=== PATIENT | female | born 1945 | race Caucasian/White ===

== ENCOUNTER → 2016-12-24 | Outpatient (CLI) | payer OTHER ==
[~2016-12-24] MED LIST: ACARBOSE25 MG PO; AMITRIPTYLINE H25 M2 PO; ASA81BEC PO; ASPIRIN81 M2 PO; BENICAR20 MG PO; CLOBETASOL EMOL15 GM TOP; COLACE100 MG PO; FEOSOL325 M1 PO; HYDROXYZINE HCL10 M2 PO; INVANZ 1GM/NS 101 GM IV; LANTUS SOL100 UNIT/1 SUBQ; LANTUS100 UNIT/M SUBQ; LEVOTHYROXIN0.075 MG PO; METFORMIN HCL1000 MG PO; MINOCIN100 MG PO; MYRBETRIQ25 MG PO; NORCO 5-325 TA1 EACH PO; OXYCODONE HCL 55 MG PO; TRAMADOL 50 MG50 MG PO; TRICOR145 MG PO; TYLENOL325 MG PO; VANCOMYCIN HCL1 GM IV; VANCOMYCIN1.25 GM/21 IV; VITAMIN B-1100 M1 PO; XARELTO15 MG PO; XARELTO20 MG PO; ZANTAC 150MG T150 MG PO; ZOCOR20 MG PO
== END ==
LOC: HYPER 08:11
DX: S81.801A Unspecified open wound, right lower leg, initial encounter (principal); I10 Essential (primary) hypertension; E78.00 Pure hypercholesterolemia, unspecified; E11.36 Type 2 diabetes mellitus with diabetic cataract; M19.90 Unspecified osteoarthritis, unspecified site; E11.69 Type 2 diabetes mellitus with other specified complication; M86.8X8 Other osteomyelitis, other site; Z96.651 Presence of right artificial knee joint; X58.XXXA Exposure to other specified factors, initial encounter; Y93.89 Activity, other specified; Y92.89 Other specified places as the place of occurrence of the external cause; Y99.8 Other external cause status

== ENCOUNTER → 2017-01-07 | Outpatient (CLI) | payer OTHER | LOC: HYPER 06:41 | DX: L02.415 Cutaneous abscess of right lower limb (principal); I10 Essential (primary) hypertension; E78.00 Pure hypercholesterolemia, unspecified; E11.36 Type 2 diabetes mellitus with diabetic cataract; J45.909 Unspecified asthma, uncomplicated; M19.90 Unspecified osteoarthritis, unspecified site; E11.69 Type 2 diabetes mellitus with other specified complication; M86.9 Osteomyelitis, unspecified; Z96.651 Presence of right artificial knee joint; Z79.4 Long term (current) use of insulin; Z79.82 Long term (current) use of aspirin; Z85.831 Personal history of malignant neoplasm of soft tissue ==

== ENCOUNTER → 2017-02-04 | Outpatient (CLI) | payer OTHER | LOC: HYPER 06:50 | DX: S81.801D Unspecified open wound, right lower leg, subsequent encounter (principal); L02.415 Cutaneous abscess of right lower limb; I10 Essential (primary) hypertension; E78.00 Pure hypercholesterolemia, unspecified; E78.5 Hyperlipidemia, unspecified; E11.36 Type 2 diabetes mellitus with diabetic cataract; J45.909 Unspecified asthma, uncomplicated; M19.90 Unspecified osteoarthritis, unspecified site; E11.69 Type 2 diabetes mellitus with other specified complication; M86.68 Other chronic osteomyelitis, other site; Z96.651 Presence of right artificial knee joint; X58.XXXD Exposure to other specified factors, subsequent encounter ==

== ENCOUNTER → 2017-02-25 | Outpatient (CLI) | payer OTHER | LOC: HYPER 06:34 | DX: L02.415 Cutaneous abscess of right lower limb (principal); E11.36 Type 2 diabetes mellitus with diabetic cataract; I10 Essential (primary) hypertension; E78.00 Pure hypercholesterolemia, unspecified; J45.909 Unspecified asthma, uncomplicated; M19.90 Unspecified osteoarthritis, unspecified site; M86.8X8 Other osteomyelitis, other site; Z96.651 Presence of right artificial knee joint ==

== ENCOUNTER → 2017-11-01 | Outpatient (CLI) | payer OTHER | LOC: HYPER 07:14 | DX: T81.31XD Disruption of external operation (surgical) wound, not elsewhere classified, subsequent encounter (principal); E11.622 Type 2 diabetes mellitus with other skin ulcer; L97.811 Non-pressure chronic ulcer of other part of right lower leg limited to breakdown of skin; E11.36 Type 2 diabetes mellitus with diabetic cataract; E11.69 Type 2 diabetes mellitus with other specified complication; M86.8X8 Other osteomyelitis, other site; I10 Essential (primary) hypertension; E78.5 Hyperlipidemia, unspecified; E78.00 Pure hypercholesterolemia, unspecified; M19.90 Unspecified osteoarthritis, unspecified site; J45.909 Unspecified asthma, uncomplicated; Y83.8 Other surgical procedures as the cause of abnormal reaction of the patient, or of later complication, without mention of misadventure at the time of the procedure ==

== ENCOUNTER → 2017-11-24 | Outpatient (CLI) | payer OTHER | LOC: HYPER 06:59 | DX: T81.31XA Disruption of external operation (surgical) wound, not elsewhere classified, initial encounter (principal); E11.622 Type 2 diabetes mellitus with other skin ulcer; L97.811 Non-pressure chronic ulcer of other part of right lower leg limited to breakdown of skin; E11.69 Type 2 diabetes mellitus with other specified complication; M86.8X8 Other osteomyelitis, other site; E11.36 Type 2 diabetes mellitus with diabetic cataract; E78.00 Pure hypercholesterolemia, unspecified; E78.5 Hyperlipidemia, unspecified; E07.89 Other specified disorders of thyroid; I10 Essential (primary) hypertension; J45.909 Unspecified asthma, uncomplicated; M19.90 Unspecified osteoarthritis, unspecified site; Y92.89 Other specified places as the place of occurrence of the external cause; Y83.8 Other surgical procedures as the cause of abnormal reaction of the patient, or of later complication, without mention of misadventure at the time of the procedure ==

== ENCOUNTER 2018-09-20 16:22 | Emergency (ER) | payer OTHER ==
[~2018-09-20] VITALS: Ht 160 cm; Wt 86.2 kg
--- NOTE | ~2018-09-20 | EMS ---
[address] [address] EMS Patient Care Report Name: KATY KEANE [facility] #: [facility] [id number] Admission: 09/20/18 Attend Phys: Discharge: Date of : 41 Report #: [id number] THIS REPORT FOR: //name// Report Transmitted: 09/20/2018 16:25 EMS Care Summary [place], [place]/[facility] Incident [id number] @ 09/20/2018 15:45 Incident Location [address] [address] Patient KATY KEANE Female, 73 Years 1945 Patient Address Patient History Diabetes, Patient Allergies Codeine,Penicillin allergy,Morphine,Keflex, Patient Medications Insulin, Chief Complaint DROWSY Disposition Transported No Lights/[place] Dispatch Reason Diabetic Problem Transported To [facility] Narrative RESPONDED TO DIABETIC AT HOME. UPON ARRIVAL PT FOUND SITTING IN WHEELCHAIR ASLEEP. WHEN TALKED TO PT OPENS EYES AND ANSWERS QUESTIONS BUT FALLS BACK TO SLEEP IMMEDIATELY. PT ON SCENE REPORT PT HAS DECREASED LOC OVER THE PAST 4 HOURS AND WANTS PT TO BE TRANSPORTED. PT HAD NO COMPLAINTS BESIDES BEING DROWSY. PT CARRIED TO STAIRCHAIR AND COT. VITALS, 3 LEAD AND IV OBTAINED. PT TRANSPORTED NONEMERGENCY TO [facility]. PT TEAM LIFTED TO BED AND HANDRAILS UP. [address] [address] EMS Patient Care Report Name: KATY KEANE Room #: REG [facility]#: [id number] Admission: 09/20/18 Attend Phys: Discharge: Date of : 41 Report #: [id number] REPORT GIVEN TO NURSE. Initial Vitals @16:08P: 83, @16:11P: 85,R: 14,BP: 149/91,Pain: 0/10,CO: 2,SpO2: 95, @16:04P: 87,R: 14,BP: 138/73,GCS: 14,Glucose: 119,CO: 2,SpO2: 93,Revised Trauma: 12, Assessments @15:55MENTAL:Person Oriented,Time Oriented,Place Oriented,Event Oriented,SKIN:HEENT:Head/Face: No Abnormalities,Neck/Airway: No Abnormalities,LUNG SOUNDS:General: No Abnormalities,ABDOMEN:General: No Abnormalities,PELVIS//GI:No Abnormalities,EXTREMITIES:Left Arm: No Abnormalities,Right Arm: No Abnormalities,Left Leg: No Abnormalities,Right Leg: No Abnormalities,PULSE:NEURO:@16:02MENTAL:Event Oriented,Place Oriented,Person Oriented,Time Oriented,SKIN:HEENT:Head/Face: No Abnormalities,Neck/Airway: No Abnormalities,LUNG SOUNDS:General: No Abnormalities,ABDOMEN:General: No Abnormalities,PELVIS//GI:No Abnormalities,EXTREMITIES:Left Arm: No Abnormalities,Right Arm: No Abnormalities,Left Leg: No Abnormalities,Right Leg: No Abnormalities,PULSE:NEURO:No Abnormalities, Impression Altered Mental Status Procedures @15:55ALS AssessmentSucceeded@16:08Saline Lock 3cc (20 ga) Site: Forearm-RightResponse: UnchangedSucceeded@16:023-Lead ECGResponse: UnchangedSucceeded Timeline 15:43,Call Received 15:43,Dispatch Notified 15:45,Dispatched 15:46,En Route 15:53,On Scene 15:55,At Patient 15:55,ALS Assessment,Succeeded, 16:02,3-Lead ECG,Response: UnchangedSucceeded, 16:04,BP: 138/73 M,PULSE: 87,RR: 14 R,SPO2: 93 Ox,ETCO2: ,B,PAIN: ,GCS: 14, 16:08,BP: / M,PULSE: 83,RR: R,SPO2: Ox,ETCO2: ,BG: ,PAIN: ,GCS: , 16:08,Saline Lock 3cc 20 ga Site: Forearm-Right,Response: UnchangedSucceeded, 16:10,Depart Scene 16:11,BP: 149/91 M,PULSE: 85,RR: 14 R,SPO2: 95 Ox,ETCO2: ,BG: ,PAIN: 0,GCS: , 16:19,At Destination 16:31,Call Closed [facility] [address] [place] [address] EMS Patient Care Report Name: KATY KEANE Room #: REG DISHA Farris#: [id number] Admission: 09/20/18 Attend Phys: Discharge: Date of : 41 Report #: [id number] Disclaimer v1.1 Copyright 2019 [employer] This EMS Care Summary contains data elements from the applicable legal record (which may be displayed differently). It is designed to provide pertinent information for the following purposes: continuity of care, clinical quality, and state data reporting. The complete legal record is available to ED staff and administrators of the receiving hospital in [employer]'s Patient Tracker. All data is provided "as is."
[2018-09-20 16:50] LABS: ABSOLUTE NEUTROPHILS 4.5 thou/uL (1.4-8.2); BASOPHILS 0.3 % (0.0-2.0); EOSINOPHILS 4.4 % (0.0-3.0); HEMATOCRIT 35.7 % (37.0-47.0); HEMOGLOBIN 11.8 gm/dL (12.0-15.0); LYMPHOCYTES 30.9 % (24.0-44.0); MCH 26.9 pg (26.0-34.0); MCHC 33.2 g/dL (28.0-37.0); MONOCYTES 7.9 % (1.0-8.0); PLATELET COUNT 232 thou/uL (150-400); POLYS 56.5 % (36.0-66.0); RBC 4.41 mil/uL (4.20-5.00); RDW 18.8 % (10.5-14.5); WBC 7.9 thou/uL (4.0-11.0)
[2018-09-20 16:51] LABS: ANION GAP 10 mmol/L (7-16); BUN 27 mg/dL (7-18); CALCIUM 9.3 mg/dL (8.5-10.1); CHLORIDE 103 mmol/L (98-107); CO2 25 mmol/L (21-32); GLUCOSE 43 mg/dL (74-106); POTASSIUM 3.9 mmol/L (3.5-5.1); SODIUM 138 mmol/L (136-145)
[2018-09-20 17:01] LABS: ALBUMIN 3.6 g/dL (3.4-5.0); SGOT 28 U/L (15-37); SGPT 21 U/L (30-65); TOTAL BILIRUBIN 0.3 mg/dL (<0.1-1.0); TOTAL PROTEIN 7.6 g/dL (6.4-8.2); TROPONIN-I <0.06 ng/mL (<0.06)
--- NOTE | 2018-09-20 17:26 | EKG ---
[place] [address] [facility] [place] [address] ELECTROCARDIOGRAM REPORT Name: KATY KEANE [facility] [id number] Admission: 09/20/18 Attend Phys: Discharge: Date of : 41 Report #: [id number] THIS REPORT FOR: //name// [facility] ED Test Date: 2018-09-20 Test Time: 16:47:40 Pat Name: KATY KEANE Department: Room: Gender: F Nurse Aide Evaluator: MACIEL : 1945 Requested By: Donna Devi Order Number: [id number] MD: Chalo Ryan Measurements Intervals [place] Rate: 74 P: 43 KS: 185 QRS: -10 QRSD: 103 T: 31 QT: 409 QTc: 454 Interpretive Statements Sinus rhythm Normal tracing No previous ECG available for comparison Electronically Signed On 09-20-2018 17:26:39 CDT by Chalo Ryan [email or web address] <ELECTRONICALLY SIGNED> By: Chalo Ryan MD, [facility] 09/20/18 1726 1647 1647 Chalo Ryan MD, FACC /EPI
[2018-09-20 17:32] LABS: URINE BILIRUBIN NEGATIVE (Negative); URINE BLOOD NEGATIVE (Negative); URINE CLARITY CLEAR; URINE COLOR YELLOW; URINE GLUCOSE-RANDOM* NEGATIVE (Negative); URINE KETONES NEGATIVE (Negative); URINE LEUKOCYTES-REFLEX NEGATIVE (Negative); URINE NITRITE-REFLEX NEGATIVE (Negative); URINE PROTEIN (DIPSTICK) NEGATIVE (Negative); URINE UROBILINOGEN 0.2 E.U./dl (0.2-1.0)
[2018-09-20 18:35] VITALS: BP 128/69
== END 2018-09-20 18:35 | disposition home or self-care (01) ==
LOC: ER 16:22
PROVIDERS: Physician Assistant
DX: R53.83 Other fatigue (principal); E11.9 Type 2 diabetes mellitus without complications; I10 Essential (primary) hypertension; E03.9 Hypothyroidism, unspecified; M19.90 Unspecified osteoarthritis, unspecified site; E78.00 Pure hypercholesterolemia, unspecified; K21.9 Gastro-esophageal reflux disease without esophagitis; Z96.653 Presence of artificial knee joint, bilateral; Z98.51 Tubal ligation status; Z90.49 Acquired absence of other specified parts of digestive tract; Z88.9 Allergy status to unspecified drugs, medicaments and biological substances; Z88.8 Allergy status to other drugs, medicaments and biological substances; Z88.1 Allergy status to other antibiotic agents; Z88.6 Allergy status to analgesic agent; Z88.0 Allergy status to penicillin; Z91.048 Other nonmedicinal substance allergy status

== ENCOUNTER → 2019-03-27 | Outpatient (CLI) | payer OTHER | LOC: SJCVC 11:01 | DX: R94.31 Abnormal electrocardiogram [ECG] [EKG] (principal); I10 Essential (primary) hypertension; E78.00 Pure hypercholesterolemia, unspecified; E11.9 Type 2 diabetes mellitus without complications; Z79.4 Long term (current) use of insulin; Z90.49 Acquired absence of other specified parts of digestive tract; Z79.82 Long term (current) use of aspirin ==

== ENCOUNTER → 2019-03-27 | Outpatient (CLI) | payer OTHER | LOC: SJCVC 10:34 | DX: R94.31 Abnormal electrocardiogram [ECG] [EKG] (principal); I10 Essential (primary) hypertension; E78.00 Pure hypercholesterolemia, unspecified; E11.9 Type 2 diabetes mellitus without complications; Z79.4 Long term (current) use of insulin; Z90.49 Acquired absence of other specified parts of digestive tract; Z79.82 Long term (current) use of aspirin ==

== ENCOUNTER → 2019-12-26 | Outpatient (CLI) | payer OTHER | LOC: SJCVC 09:45 → SJCVCIMAG 09:45 | PROVIDERS: ATTEND Internal Medicine Cardiovascular Disease | DX: I35.8 Other nonrheumatic aortic valve disorders (principal); R94.31 Abnormal electrocardiogram [ECG] [EKG]; E11.9 Type 2 diabetes mellitus without complications; I10 Essential (primary) hypertension; E78.00 Pure hypercholesterolemia, unspecified; R00.2 Palpitations; Z79.4 Long term (current) use of insulin; Z79.899 Other long term (current) drug therapy ==

== ENCOUNTER → 2020-01-16 | Outpatient (CLI) | payer OTHER ==
[~2020-01-16] MED LIST changes: +HUMALOG100 UNIT/1 SUBQ; +HYDROCHLOROTHIA25 M2 PO; +INSULIN LI100 UNIT/3 SQ; -LEVOTHYROXIN0.075 MG PO; +NAPROXEN SODIU220 M2 PO; +PAMELOR25 MG PO; +SIMVASTATIN80 MG PO; +SYNTHROID88 MC1 PO; +TRULANCE3 MG PO
== END ==
LOC: SJCVCIMAG 07:46
PROVIDERS: ATTEND Internal Medicine Cardiovascular Disease
DX: R00.2 Palpitations (principal); E11.9 Type 2 diabetes mellitus without complications; I10 Essential (primary) hypertension; E78.5 Hyperlipidemia, unspecified; Z79.82 Long term (current) use of aspirin; Z79.899 Other long term (current) drug therapy; Z79.4 Long term (current) use of insulin

== ENCOUNTER → 2020-01-25 | Outpatient (CLI) | payer OTHER ==
[~2020-01-25] VITALS: Ht 160 cm; Wt 90.7 kg
[2020-01-25 07:38] VITALS: BP 153/62
[2020-01-25 07:43] LABS: HEMATOCRIT 34.8 % (37.0-47.0); HEMOGLOBIN 11.1 gm/dL (12.0-15.0); MCH 26.4 pg (26.0-34.0); MCV 82.7 fL (80.0-100.0); RBC 4.21 mil/uL (4.20-5.00); RDW 13.8 % (10.5-14.5); WBC 5.8 thou/uL (4.0-11.0)
--- NOTE | 2020-01-25 07:49 | EKG ---
[place] [address] [facility] [place] [address] ELECTROCARDIOGRAM REPORT Name: KATY KEANE [facility] #: [facility] [id number] Admission: 01/25/20 Attend Phys: Heber Banuelos MD, Discharge: Date of : 41 Report #: [id number] [facility] Test Date: 2020-01-25 Test Time: 07:38:37 Pat Name: KATY KEANE Department: Room: Gender: F Sole Leveler: SBULOW : 1945 Requested By: Heber Banuelos Order Number: [id number] MD: Chalo Ryan Measurements Intervals [place] Rate: 91 P: 50 SD: 192 QRS: -14 QRSD: 88 T: 32 QT: 364 QTc: 448 Interpretive Statements Sinus rhythm Normal tracing Compared to ECG 09/20/2018 16:47:40 No significant changes Electronically Signed On 01-25-2020 7:49:47 RESIDENTIAL ENERGY AUDITOR by Chalo Ryan [email or web address] <ELECTRONICALLY SIGNED> By: Chalo Ryan MD, [facility] 01/25/20 0749 0738 0738 Chalo Ryan MD, FACC /EPI
[2020-01-25 07:51] LABS: CALCIUM 9.4 mg/dL (8.5-10.1); CREATININE 1.1 mg/dL (0.6-1.0)
--- NOTE | 2020-01-25 17:08 | CATHLAB ---
[facility] [place] [address] INVASIVE PROCEDURE REPORT Name: KATY KEANE Room #: REG LEOBARDO Pacheco.#: [id number] Admission: 01/25/20 Attend Phys: Heber Banuelos MD, Discharge: Date of : 41 Report #: [id number] THIS REPORT FOR: cc: Kiko Barnard Kent DO Mancuso, Gerald M. MD [facility] ~ APPROVED REPORT Study performed: 01/25/2020 07:43:01 Patient Details Patient Status: Out-Patient Room #: The patient is a 75 year-old female Event Personnel Heber Banuelos Tactical Response Group Officer, Torres Muñiz RN RN, Ok Borges RTR ScrubWesley Sherra RTR Monitor, Riri John RTR Staff Software Engineer Procedures Performed Art Access - R femoral artery* Left Heart Cath w/or w/o Coronaries 1898358 [facility] [address] Initial Mod Sed Same Phys/QHP Gr5y 290579 92276 Mod Sed Same Phys/QHP Ea 242173 Hemostasis w/ Mynx Indication Chest pain Procedure Narrative The Right Groin^ was infiltrated with 1% Lidocaine subcutaneous anesthesia. A PINNACLE 6FR Sheath #[id number] sheath was inserted into the RFA^. Coronary angiography was performed using coronary diagnostic catheters. The right coronary system was accessed and visualized with a JR4 catheter. The left coronary system was accessed and visualized with a JL3.5 catheter. The left ventricle was accessed and visualized with a PIGTAIL catheter. Left ventriculogram was performed in 30 degree projection. An aortogram of the abdominal aorta was performed. Pre-demployment femoral angiogram was performed . Closure device was deployed with a 6 Fr MYNXGRIP 6/7F #[id number]. The patient tolerated the procedure well and there were no complications associated with the procedure. There was no hematoma. Intraoperative Conscious Sedation Sedation start time: 856 Case end Time: 93 Fentanyl 75 mcg Versed 1.5 mg [facility] [address] [place] [address] INVASIVE PROCEDURE REPORT Name: KATY KEANE Room #: [facility]#: [id number] Admission: 01/25/20 Attend Phys: Heber Banuelos, Discharge: Date of : 41 Report #: [id number] Fluoro Time: 3.10 minutes Dose: DAP 5419.30 cGycm2 688 mGy Contrast Type and Amount: Visipaque 100 ml Hemodynamics The aortic pressure is 145/68 mmHg with a mean of 100 mmHg. The left ventricular pressure is 163/11 mmHg with a mean of mmHg. The left ventricular end diastolic pressure is 27 mmHg. Conclusion #1. Hyperdynamic LV function EF 65%. #2 abdominal aortogram revealing intact abdominal aorta with no significant aneurysm mild diffuse plaquing and calcification. #3 left main mildly calcified giving rise to LAD and circumflex. #4 LAD also proximal calcification with mild diffuse irregularities and becomes an attenuated distal vessel. No indication for intervention. #5 circumflex OM nondominant with mild disease. #6 large dominant ectatic right coronary artery. Proximal calcification mid vessel lesion of 40% giving rise to large PDA MELYSSA diffusely diseased. Recommendations and plan: Continue aggressive risk factor modification. No indication for coronary intervention. <ELECTRONICALLY SIGNED> By: Heber Banuelos MD, FACC 01/25/201707 07 07 Heber Banuelos MD, FACC /INF
== END | disposition home or self-care (01) ==
LOC: CATH 06:36
PROVIDERS: ATTEND Internal Medicine Cardiovascular Disease
DX: R07.9 Chest pain, unspecified (principal); I25.10 Atherosclerotic heart disease of native coronary artery without angina pectoris; I70.0 Atherosclerosis of aorta; I10 Essential (primary) hypertension; E11.9 Type 2 diabetes mellitus without complications; E03.9 Hypothyroidism, unspecified; M19.90 Unspecified osteoarthritis, unspecified site; E78.00 Pure hypercholesterolemia, unspecified; K21.9 Gastro-esophageal reflux disease without esophagitis; Z98.890 Other specified postprocedural states; Z79.899 Other long term (current) drug therapy; Z79.82 Long term (current) use of aspirin; Z98.51 Tubal ligation status; Z90.49 Acquired absence of other specified parts of digestive tract; Z96.653 Presence of artificial knee joint, bilateral; Z88.0 Allergy status to penicillin; Z88.8 Allergy status to other drugs, medicaments and biological substances

== ENCOUNTER → 2020-07-10 | Outpatient (CLI) | payer OTHER | LOC: SJCVC 13:06 | PROVIDERS: ATTEND Internal Medicine Cardiovascular Disease | DX: R94.31 Abnormal electrocardiogram [ECG] [EKG] (principal); I25.10 Atherosclerotic heart disease of native coronary artery without angina pectoris; I10 Essential (primary) hypertension; E78.00 Pure hypercholesterolemia, unspecified; E11.9 Type 2 diabetes mellitus without complications; C49.9 Malignant neoplasm of connective and soft tissue, unspecified; Z79.4 Long term (current) use of insulin; Z79.82 Long term (current) use of aspirin; Z79.899 Other long term (current) drug therapy; Z88.0 Allergy status to penicillin; Z88.8 Allergy status to other drugs, medicaments and biological substances; Z88.5 Allergy status to narcotic agent ==